=== PATIENT | female | born 1995 | race Caucasian/White ===

== ENCOUNTER → 2017-07-12 | Outpatient (CLI) | payer MEDICAID | LOC: FIMAGING 13:13 | PROVIDERS: ATTEND Obstetrics & Gynecology | DX: O30.041 Twin pregnancy, dichorionic/diamniotic, first trimester (principal); Z3A.12 12 weeks gestation of pregnancy ==

== ENCOUNTER → 2017-08-09 | Outpatient (CLI) | payer MEDICAID | LOC: FIMAGING 07:41 | PROVIDERS: ATTEND Obstetrics & Gynecology | DX: O30.042 Twin pregnancy, dichorionic/diamniotic, second trimester (principal); Z3A.16 16 weeks gestation of pregnancy ==

== ENCOUNTER → 2017-11-14 | Outpatient (CLI) | payer MEDICAID | LOC: FIMAGING 07:53 | PROVIDERS: ATTEND Obstetrics & Gynecology | DX: Z36.89 Encounter for other specified antenatal screening (principal); O30.043 Twin pregnancy, dichorionic/diamniotic, third trimester; Z3A.30 30 weeks gestation of pregnancy ==